=== PATIENT | female | born 1950 | race Caucasian/White ===

== ENCOUNTER → 2017-10-22 | Outpatient (CLI) | payer OTHER ==
[~2017-10-22] MED LIST: ARIXTRA; ASPIRIN325 PO; COLACE100 MG PO; GLUCOSAMINE &1 EACH PO; LISINOPRIL-HCT1 EACH PO; LISINOPRIL/HCTZ PO; MIRALAX255 GM PO; NOVOLIN 70100 UNIT/2 SC; NOVOLOG MI100 UNIT/2 SC; OMEGA-3 FISH O1 EAC3 PO; OXYCODONE HCL5 M1; PERCOCET 5-3251 EACH; UNKNOWN PAIN MED PO; VITAMIN C PO; VITAMIN D PO; VITAMIN E PO; [UNRECOGNIZED DRUG - OTHER] PO
== END ==
LOC: M.RAD 10-15 13:30
DX: M85.89 Other specified disorders of bone density and structure, multiple sites (principal)